=== PATIENT | male | born 1995 | race Caucasian/White ===

== ENCOUNTER 2016-11-21 20:26 | Emergency (ER) | payer MEDICAID, OTHER ==
--- NOTE | 2016-11-21 21:00 | EDPHY ---
H & P Stated Complaint: R LOWER RIB PAIN WITH DEEP BREATH - Personal History Current Tetanus/Diphtheria Vaccine: Yes Current Tetanus Diphtheria and Acellular Pertussis (TDAP): Yes Tetanus Vaccine Date: < 10 years - Medical/Surgical History Hx Asthma: No Hx Chronic Respiratory Disease: No Hx Diabetes: No Hx Cardiac Disease: No Hx Renal Disease: No Hx Cirrhosis: No Hx Alcoholism: No Hx HIV/AIDS: No Hx Splenectomy or Spleen Trauma: No Other PMH: PMHx: seizures. PSHx: denies - Social History Smoking Status: Never smoked Time Seen by Provider: 11/21/16 20:40 HPI/ROS: CHIEF COMPLAINT: Pleuritic right-sided chest pain x2 weeks HISTORY OF PRESENT ILLNESS: 21-year-old male generally healthy complaining of atraumatic right lower chest pain described as pleuritic only with with associated dyspnea. Described as nonexertional. No discoloration. No cough. No dyspnea. No cocaine or illicit drug use. Nonsmoker. No recent travel. No immobilization. No malignancy history. No leg pain or cramping. REVIEW OF SYSTEMS: A ten point review of systems was performed and is negative with the exception of the items mentioned in the HPI PAST MEDICAL & SURGICAL HISTORY: No pertinent medical or surgical history SOCIAL HISTORY: Nonsmoker. No cocaine use. FAMILY HISTORY: No family history of premature coronary artery disease , early DE or sudden unexplained PHYSICAL EXAM (Prior to examination, patient consented to physical exam, hands were washed and my usual and customary physical exam procedures followed) 1) GENERAL: Well-developed, well-nourished, alert and oriented. Appears to be in no acute distress. 2) HEAD: Normocephalic, atraumatic 3) HEENT: Pupils equal, round, reactive to light bilaterally. Sclera anicteric. 4) NECK: Full range of motion, no meningeal signs. 5) LUNGS: Clear auscultation bilaterally, no wheezes, no rhonchi, no retractions. No tenderness to palpation of the ribs. 6) HEART: Regular rate and rhythm, no murmur, no heave, no gallop. 7) ABDOMEN: No guarding, no rebound, no focal tenderness, negative McBurney's, negative Nava's, negative Rovsing's, negative peritoneal sign, 8) MUSCULOSKELETAL: Moving all extremities, no focal areas of tenderness, no obvious trauma. No peripheral edema or discoloration. 9) BACK: No CVA tenderness, no midline vertebral tenderness, no fluctuance, no step-off, no obvious trauma, no visual or palpable abnormality. 10) SKIN: No rash, no petechiae. 11) Psychiatric: Patient is oriented X 3, there is no agitation. DIFFERENTIAL DIAGNOSIS: iIn no particular order, including but not limited to myocardial ischemia,Pneumothorax, pulmonary embolus, chest wall pain, pleural inflammation and pulmonary infectious causes, hepatitis, pancreatitis r (Mariella,Payton Kaleigh) Constitutional: Initial Vital Signs Temperature (C) 37.1 C 11/21/16 20:27 Heart Rate 91 11/21/16 20:27 Respiratory Rate 20 11/21/16 20:27 Blood Pressure 130/78 H 11/21/16 20:27 O2 Sat (%) 93 11/21/16 20:27 O2 Delivery Mode Room Air Allergies/Adverse Reactions: No Known Allergies Allergy (Unverified 11/21/16 20:31) Home Medications: Medication Instructions Recorded VIMPAT 09/16/15 Ibuprofen [Motrin (*)] 600 mg PO Q6 #15 tab 11/21/16 Medical Decision Making - Diagnostics Imaging: Discussed imaging studies w/ client partner Radiologist - Diagnostics Imaging Results: Imaging Impressions Chest X-Ray 11/21/16 21:00 Impression: Suspect airways disease. Otherwise negative. Chest/Thorax CTA 11/21/16 22:09 Impression: 1. Small right pleural effusion. Suspect pleuritis. 2. No pulmonary embolic disease. General information for patients regarding this examination can be found at [employer]. If you have questions or comments about this report, please contact me at (hospital) or [phone] ([facility]). Imaging Impressions Chest X-Ray 11/21/16 21:00 Impression: Suspect airways disease. Otherwise negative. Chest/Thorax CTA 11/21/16 22:09 Impression: 1. Small right pleural effusion. Suspect pleuritis. 2. No pulmonary embolic disease. General information for patients regarding this examination can be found at [employer]. If you have questions or comments about this report, please contact me at (hospital) or [phone] ([facility]). Images reviewed by myself (Payton Wolff) ED Course/Re-evaluation: The patient was evaluated and managed by the physician's grooming assistant. My cosignature indicates that I reviewed the chart and I agree with the findings and plan of care as documented. I am the secondary supervising physician. ( Nehal Calzada) This patient was evaluated with serial examinations. Initial examination the patient that he has Wells score that places him at moderate risk. Will obtain D-dimer and re-evaluated. I discussed with the patient his elevated D-dimer. This in the presence of a moderate risk Wells score, I recommended CT imaging of the chest. Indications risks benefits this discussed with the patient he verbalizes consent. 11:01 p.m.: Re-evaluation with serial examinations. Discussed the negative imaging results for pulmonary embolus. Discussed the case with Dr. Nehal Calzada in the emergency department. I think the patient can be discharged. Doubt cardiac pathology. Recommended NSAIDs and also provided usual customary NSAID precautions and instructions. (Payton Wolff) - Data Points Laboratory Results: Laboratory Results 11/21/16 21:11 11/21/16 21:11 11/21/16 11/21/16 11/21/16 21:11 21:11 21:11 WBC 11.78 10^3/uL H 10^3/uL (3.80-9.50) RBC 4.63 10^6/uL 10^6/uL (4.40-6.38) Hgb 15.0 g/dL g/dL (13.7-17.5) Hct 41.7 % % (40.0-51.0) MCV 90.1 fL fL (81.5-99.8) MCH 32.4 pg pg (27.9-34.1) MCHC 36.0 g/dL g/dL (32.4-36.7) RDW 11.3 % L % (11.5-15.2) Plt Count 204 10^3/uL 10^3/uL (150-400) MPV 10.4 fL fL (8.7-11.7) Neut % (Auto) 71.2 % % (39.3-74.2) Lymph % (Auto) 21.6 % % (15.0-45.0) Sunflower % (Auto) 6.2 % % (4.5-13.0) Eos % (Auto) 0.4 % L % (0.6-7.6) Baso % (Auto) 0.2 % L % (0.3-1.7) Nucleat RBC Rel Count 0.0 % % (0.0-0.2) Absolute Neuts (auto) 8.39 10^3/uL H 10^3/uL (1.70-6.50) Absolute Lymphs (auto) 2.54 10^3/uL 10^3/uL (1.00-3.00) Absolute Monos (auto) 0.73 10^3/uL 10^3/uL (0.30-0.80) Absolute Eos (auto) 0.05 10^3/uL 10^3/uL (0.03-0.40) Absolute Basos (auto) 0.02 10^3/uL 10^3/uL (0.02-0.10) Absolute Nucleated RBC 0.00 10^3/uL 10^3/uL (0-0.01) Immature Gran % 0.4 % % (0.0-1.1) Immature Gran # 0.05 10^3/uL 10^3/uL (0.00-0.10) D-Dimer 0.85 ug/mLFEU H ug/mLFEU (0.00-0.50) Sodium 137 mEq/L mEq/L (134-144) Potassium 3.8 mEq/L mEq/L (3.5-5.2) Chloride 100 mEq/L mEq/L (97-110) Carbon Dioxide 23 mEq/l mEq/l (22-31) Anion Gap 14 mEq/L mEq/L (8-16) BUN 15 mg/dL mg/dL (7-23) Creatinine 1.1 mg/dL mg/dL (0.7-1.3) Estimated GFR > 60 Glucose 83 mg/dL mg/dL (70-100) Calcium 10.2 mg/dL mg/dL (8.5-10.4) Total Bilirubin 0.6 mg/dL mg/dL (0.1-1.4) Conjugated Bilirubin 0.2 mg/dL mg/dL (0.0-0.5) Unconjugated Bilirubin 0.4 mg/dL mg/dL (0.0-1.1) AST 26 IU/L IU/L (17-59) ALT 31 IU/L IU/L (21-72) Alkaline Phosphatase 57 IU/L IU/L (38-126) Creatine Kinase 221 IU/L IU/L (0-224) Total Protein 7.5 g/dL g/dL (6.3-8.2) Albumin 4.7 g/dL g/dL (3.5-5.0) Lipase 60.0 IU/L IU/L (23-300) Departure - Departure Disposition: Home, Routine, Self-Care Clinical Impression: Pleural effusion, Pleurisy Condition: Good Instructions: Pleurisy (ED) Additional Instructions: Return to the ER immediately if you develop new or worsening pain, if you develop shortness of breath or any other symptoms that concern you. Referrals: [facility],. [Clinic] - 1-2 days without fail Prescriptions: Ibuprofen [Motrin (*)] 600 mg PO Q6 #15 tab
--- NOTE | 2016-11-21 21:08 | CPEKG ---
Heart Rate: 73 RR Interval: 822 P-R Interval: 172 QRSD Interval: 92 QT Interval: 356 QTC Interval: 393 P Bishop: 75 QRS Bishop: 65 T Wave Bishop: 37 EKG Severity - NORMAL ECG - EKG Impression: SINUS RHYTHM EKG Impression: ST ELEV, PROBABLE NORMAL EARLY REPOL PATTERN Electronically Signed By: Nehal Calzada 21-Nov-2016 23:17:21
[2016-11-21 21:42] LABS: % IMMATURE GRANULYOCYTES 0.4 % (0.0-1.1); ABSOLUTE IMMATURE GRANULOCYTES 0.05 10^3/uL (0.00-0.10); ADD DIFF? NO; ADD MORPH? NO; ADD SCAN? NO; ATYPICAL LYMPHOCYTE FLAG 10 (0-99); FRAGMENT RBC FLAG 0 (0-99); HEMATOCRIT 41.7 % (40.0-51.0); LEFT SHIFT FLG 0 (0-99); LIPEMIA HEMOLYSIS FLAG 90 (0-99); MEAN CELL HEMOGLOBIN 32.4 pg (27.9-34.1); MEAN CELL VOLUME 90.1 fL (81.5-99.8); MEAN PLATELET VOLUME 10.4 fL (8.7-11.7); PLATELET CLUMPS FLAG 10 (0-99); PLATELET COUNT 204 10^3/uL (150-400); RED BLOOD CELL COUNT 4.63 10^6/uL (4.40-6.38); RED CELL DISTRIBUTION WIDTH 11.3 % (11.5-15.2)
[2016-11-21 21:55] LABS: ALANINE AMINOTRANSFERASE 31 IU/L (21-72); ALBUMIN 4.7 g/dL (3.5-5.0); ALKALINE PHOSPHATASE 57 IU/L (38-126); ANION GAP 14 mEq/L (8-16); ASPARTATE AMINOTRANSFERASE 26 IU/L (17-59); BILIRUBIN,TOTAL 0.6 mg/dL (0.1-1.4); BILIRUBIN-CONJUGATED 0.2 mg/dL (0.0-0.5); BILIRUBIN-UNCONJUGATED 0.4 mg/dL (0.0-1.1); CALCIUM 10.2 mg/dL (8.5-10.4); CARBON DIOXIDE 23 mEq/l (22-31); CHLORIDE 100 mEq/L (97-110); CREATININE 1.1 mg/dL (0.7-1.3); GLOMERULAR FILTRATION RATE > 60; GLUCOSE 83 mg/dL (70-100); POTASSIUM 3.8 mEq/L (3.5-5.2); SODIUM 137 mEq/L (134-144); TOTAL PROTEIN 7.5 g/dL (6.3-8.2)
[2016-11-21 21:58] VITALS: RESP 14
[2016-11-21] MEDS ORDERED: IOPAMIDOL (ISOVUE 370) 100 ML BTL IV ONE (22:15)
[2016-11-21 23:16] VITALS: BP 125/64; PULSE 62; TEMP 98.1; O2SAT 94
== END 2016-11-21 23:15 | disposition home or self-care (01) ==
DX: J90 Pleural effusion, not elsewhere classified (principal)
CPT/HCPCS: Q9967

== ENCOUNTER 2018-04-12 10:12 | Emergency (ER) | payer MEDICAID, OTHER ==
--- NOTE | 2018-04-12 10:23 | EDPHY ---
H & P Time Seen by Provider: 04/12/18 10:23 HPI/ROS: CHIEF COMPLAINT: Sore throat, aphthous ulcer on tongue HISTORY OF PRESENT ILLNESS: The patient presents to the ED with a several day history of sore throat and an aphthous ulcer which has been present on that of is time for the past week. The patient denies any cough or congestion. He does complain of a mild fever and slight myalgias. The patient denies additional acute medical complaints. REVIEW OF SYSTEMS: A comprehensive 10 point review of systems is otherwise negative aside from elements mentioned in the history of present illness. Source: Patient Exam Limitations: No limitations - Personal History Tetanus Vaccine Date: < 10 years - Medical/Surgical History Hx Asthma: No Hx Chronic Respiratory Disease: No Hx Diabetes: No Hx Cardiac Disease: No Hx Renal Disease: No Hx Cirrhosis: No Hx Alcoholism: No Hx HIV/AIDS: No Hx Splenectomy or Spleen Trauma: No Other PMH: PMHx: seizures. PSHx: denies - Social History Smoking Status: Never smoked - Physical Exam Exam: General Appearance: Alert, no distress Eyes: Pupils equal and round no pallor or injection ENT, Mouth: Mild or pharyngeal erythema noted, small aphthous ulcer noted on tip of tongue Respiratory: There are no retractions, lungs are clear to auscultation Cardiovascular: Regular rate and rhythm Gastrointestinal: Abdomen is soft and nontender, no masses, bowel sounds normal Neurological: A&O, normal motor function, normal sensory exam, normal cranial nerves Skin: Warm and dry, no rashes Musculoskeletal: Neck is supple nontender Extremities: symmetrical, full range of motion Constitutional: Initial Vital Signs Temperature (C) 37.1 C 04/12/18 10:22 Heart Rate 74 04/12/18 10:22 Respiratory Rate 16 04/12/18 10:22 Blood Pressure 131/76 H 04/12/18 10:22 O2 Sat (%) 96 04/12/18 10:22 O2 Delivery Mode Room Air Allergies/Adverse Reactions: No Known Allergies Allergy (Unverified 11/21/16 20:31) Home Medications: Medication Instructions Recorded VIMPAT 09/16/15 Ibuprofen [Motrin (*)] 600 mg PO Q6 #15 tab 11/21/16 Medical Decision Making ED Course/Re-evaluation: Workup in the emergency department includes a negative strep test negative Monospot test. The patient presents to the ED with a likely viral pharyngitis and a small aphthous ulcer on the tip his tongue. The patient will be given a short course of Decadron. The patient is given the contact number of our on-call Ear Nose Throat physician. - Data Points Laboratory Results: 04/12/18 04/12/18 04/12/18 Unknown 10:45 10:30 Monoscreen NEGATIVE (NEGATIVE) Group A Strep Screen NEGATIVE (NEGATIVE) Group A Strep DNA Pending Departure - Departure Disposition: Home, Routine, Self-Care Clinical Impression: Pharyngitis Condition: Good Instructions: Pharyngitis (ED) Additional Instructions: 1. Please take steroids as directed for next 2 days. 2. Please schedule a follow-up appointment with Ear Nose Throat physician you have been referred to for any unimproved symptoms. Referrals: Stephane Jewell MD [Medical Doctor] - As per Instructions
[2018-04-12 11:50] VITALS: BP 122/78
== END 2018-04-12 11:49 | disposition home or self-care (01) ==
DX: J02.9 Acute pharyngitis, unspecified (principal)